=== PATIENT | female | born 1955 | race Caucasian/White ===

== ENCOUNTER 2021-11-16 17:37 | Inpatient (IN) | payer MEDICARE, SELFPAY ==
--- NOTE | ~2021-11-16 | CT_ITS ---
EXAMINATION: CT ABDOMEN AND PELVIS WITH CONTRAST CLINICAL INFORMATION: abd pain COMPARISON: None. TECHNIQUE: Multidetector volumetric imaging was performed from the superior aspect of the liver through the pubic symphysis following administration of 85 mL Omnipaque 300 intravenous contrast. Sagittal and coronal reformatted images were obtained on the technologist workstation.. This CT examination was performed using dose optimization techniques as appropriate, variously including the following: *Automated exposure control *Adjustment of mA and/or kV according to patient size (this includes techniques or standardized protocols for targeted exams where dose is matched to indication/reason for exam; i.e. extremities or head) *Use of iterative reconstruction technique DLP: 486 mGy-cm FINDINGS: LUNG BASES: The visualized lung bases are unremarkable. LIVER, GALLBLADDER, AND BILIARY TREE: The liver is normal in size, shape, and attenuation. Tiny subcentimeter low-attenuation probable cysts in segment 7 of the liver too small to characterize. No suspicious focal hepatic lesion or biliary ductal dilatation is present. The gallbladder is unremarkable with no evidence of radiopaque gallstones, gallbladder wall thickening, or obvious pericholecystic inflammatory changes. PANCREAS: Unremarkable. SPLEEN: Enlarged measuring 15 cm in length ADRENAL GLANDS: Unremarkable. KIDNEYS AND URETERS: The kidneys are normal in size, shape, and attenuation. No hydronephrosis, hydroureter, or calculi seen. No perinephric stranding. BLADDER: Decompressed GASTROINTESTINAL TRACT: Although decompressed, there is marked colonic wall thickening involving the sigmoid colon and descending colon extending to the level of the splenic flexure. This had a more normal appearance on the prior study. With this distribution, infectious or inflammatory causes of colitis would be favored. No obstructive changes seen in the more proximal colon. Visualized small bowel is grossly unremarkable today ABDOMINAL WALL: No significant hernia is appreciated. LYMPHOVASCULAR STRUCTURES: Vascular calcification within the aorta iliac system. Shotty retroperitoneal lymph nodes but no bulky adenopathy PELVIC VISCERA: Unremarkable. OSSEOUS STRUCTURES: Unremarkable. CT/CT abdomen pelvis w con IMPRESSION: New colonic wall thickening and pericolonic inflammatory change extending from the splenic flexure to the sigmoid colon. This long distance of disease is more suggestive of infectious or inflammatory causes of colitis. Small bowel is grossly unremarkable at this time
[2021-11-16 17:54] VITALS: BP 163/94; BP 170/91; PULSE 104; PULSE 83; RESP 18; TEMP 37; O2SAT 95; BMI 26.6
--- NOTE | 2021-11-16 18:12 | ED.GENADULT ---
HPI - General Adult General Chief complaint: GI Bleed Stated complaint: WEAKNESS,NAUSEA,DIARRHEA W/BLOOD Time Seen by Provider: 11/16/21 17:54 Source: patient Limitations: no limitations History of Present Illness HPI narrative: This is a 66-year-old female with a history of fibromyalgia, irritable bowel syndrome, possible lupus (undergoing workup), thyroid nodules (also undergoing workup), complains of vomiting diarrhea that began last night. The patient had similar symptoms a few days ago but did not come to the hospital. She also since this morning has had bright red blood per rectum times several times. She denies any hemorrhoids. She did in 2019 have similar presentation with vomiting diarrhea and rectal bleeding. She states she did have colonoscopy at that time which was negative. She also has had some right upper quadrant tenderness and her physician had wanted her to have evaluation for possible gallstones. She denies any fever but does not state she has had sweats. She denies any cough or shortness of breath. She has felt lightheaded. She notes that she has generally not felt well ever since she had her 2nd COVID vaccination. She denies taking any anticoagulants or aspirin Related Data Allergies Allergy/AdvReac Type Severity Reaction Status Date / Time Penicillins [PENICILLINS] Allergy Intermediate HIVES Unverified 04/03/20 14:55 Review of Systems Review of Systems: Yes all other systems are reviewed and are negative Constitutional: Constitutional: Reports as per HPI, Denies fever(s) and Reports other (Sweats) Eyes: Eyes: Reports as per HPI and Reports no additional eye complaints ENT: Reports system reviewed and no additional complaints, except as documented, Reports as per HPI, Denies nasal congestion, Denies nasal discharge and Denies sore throat Cardiovascular: Cardiovascular: Reports as per HPI, Denies chest pain and Denies dyspnea Respiratory: Respiratory: Reports as per HPI, Denies cough and Denies dyspnea Gastrointestinal: Gastrointestinal: Reports as per HPI, Reports abdominal pain (Crampy), Reports hematochezia, Reports diarrhea, Reports nausea and Reports vomiting Genitourinary: Genitourinary: Reports as per HPI, Denies hematuria, Denies urinary frequency and Denies dysuria Musculoskeletal: Musculoskeletal: Reports no additional musculoskeletal complaints and Denies numbness Integumentary/Breasts: Skin/Breast: Reports as per HPI and Denies rash Neurologic: Reports as per HPI, Denies focal weakness and Denies numbness Psychiatric: Psychiatric: Reports no additional psychiatric complaints and Reports as per HPI Endocrine: Endocrine: Reports no additional endocrine complaints and Reports as per HPI Hematologic/Lymphatic: Hematologic/Lymphatic: Reports no additional hematologic/lymphatic complaints, Reports as per HPI and Reports other (No peripheral edema) [facility] Social History Social History Advance Directives: No Advance Directives Information Provided: No Physical Exam ED Vital Signs: Vital Signs - 24 hr 11/16/21 17:54 11/16/21 19:22 Temperature 98.6 F 98.7 F Pulse Rate 83 83 Respiratory Rate 18 18 Blood Pressure 170/91 H 160/74 H Pulse Oximetry 95 94 BMI result Body Mass Index 26.6 Const General: no acute distress Orientation/consciousness: patient oriented x3 HENMT Head: Yes normal to inspection General nose exam: Normal external nose present Mouth: moist mucous membranes Throat: Yes posterior oropharynx normal, Yes tonsils normal and Yes uvula midline Eyes Eyelids: Yes eyelids normal Conjunctivae: conjunctivae normal Pupils: Equal, round and reactive pupils present Neck Neck: Yes supple Resp Effort & Inspection: normal respiratory effort Auscultation: clear to auscultation bilaterally Cardio Rate: regular rate Rhythm: regular rhythm Heart sounds: S1 normal heart sound present, S2 normal heart sound present, no gallops, no murmurs and no rubs GI Inspection: No distended Palpation (GI): Soft to palpation and nontender Auscultation: normal bowel sounds Skin General skin exam: other (Warm and dry) Neuro General: patient oriented x3 and CN's II-XI intact bilaterally Cranial nerves: Yes Equal, round and reactive pupils present Extrem General: Yes no pedal edema Psych Affect: normal affect Attitude: cooperative Medical Decision Making [facility] Narrative Medical decision making narrative: Patient with vomiting and diarrhea, then bright red blood per rectum times several times today. Patient has had similar symptoms about 2 years ago and did have a colonoscopy around that time, which he states was negative. Patient also has had some long-standing liver quadrant pain was advised by her primary care physician that she might need a workup for biliary disease. Patient's white blood cell count was elevated at around 15. Hemoglobin and hematocrit were normal. CT scan the abdomen pelvis did show evidence of descending colitis, which could be a source of bloody stool. Patient is being admitted for observation, IV antibiotics, IV fluids, may need GI consult. Patient was treated with normal saline another IV, Zofran 4 mg IV, Levaquin 500 mg IV, Flagyl [address] Doran of hospital service was consulted regarding the patient's need for admission Lab Data Result diagrams: 11/16/21 19:28 11/16/21 19:29 Labs: Lab Results 11/16/21 11/16/21 11/16/21 Range/Units 19:28 19:28 19:29 WBC 15.3 H (4.8-10.8) X10*3/uL RBC 5.58 H (4.20-5.50) X10*6/uL Hgb 15.2 (12.0-16.0) g/dl Hct 44.3 (37.0-47.0) % MCV 79.4 L (80.0-98.0) fL MCH 27.2 (27.0-33.0) pg MCHC 34.3 (31.0-35.0) g/dl RDW 13.6 (11.0-16.0) % Plt Count 180 (160-400) X10*3/uL MPV 10.0 (9.4-12.3) fL Immature Gran % (Auto) 0.3 (0.0-0.4) % Neut % (Auto) 87.7 H (45-73) % Lymph % (Auto) 7.8 L (20-40) % Burnett % (Auto) 3.8 (2-11) % Eos % (Auto) 0.1 (0-4) % Baso % (Auto) 0.3 (0-2) % Lymph # (Auto) 1.2 (1.2-4.9) X10*3/uL Burnett # (Auto) 0.6 (0.1-1.2) X10*3/uL Eos # (Auto) 0.0 (0.0-0.4) X10*3/uL Baso # (Auto) 0.0 (0.0-0.2) X10*3/uL Abs Immat Gran (auto) 0.04 H (0.00-0.03) X10*3/uL Absolute Neuts (auto) 13.4 H (2.0-8.3) x10*3/uL Absolute Nucleated RBC 0.000 (0.0-0.012) X10*3/uL Nucleated RBC % (auto) 0.0 (0.0-0.2) /100WBC PT 11.7 (9.9-13.0) SEC INR 1.0 (0.9-1.1) APTT 35.2 (24.1-38.0) SEC Sodium (135-145) mmol/L Potassium (3.3-5.1) mmol/L Chloride (96-108) mmol/L Carbon Dioxide (22-29) mmol/L Anion Gap (12-20) BUN (9-16) mg/dL Creatinine (0.5-1.4) mg/dL Estim Creat Clear Calc Estimated GFR Random Glucose (60-115) mg/dL Calcium (8.4-10.2) mg/dL Total Bilirubin (0.0-1.0) mg/dL AST (5-31) U/L ALT (0-31) U/L Alkaline Phosphatase (39-117) U/L Total Protein (6.5-8.0) g/dL Albumin (3.5-5.0) g/dL Urine Color YELLOW Urine Appearance CLEAR Urine pH 6.0 (5.0-8.0) Ur Specific [place] 1.025 (1.005-1.025) Urine Protein TRACE (NEG-TRACE) MG/DL Urine Glucose (UA) NEG (NEG) MG/DL Urine Ketones NEG (NEG) MG/DL Urine Blood TRACE (NEG) Urine Nitrite NEG (NEG) Ur Leukocyte Esterase NEG (NEG) Urine RBC 1-4 (0) /HPF Urine WBC 0-2 (0-4) /HPF Ur Squamous Epith Cells 1+ /LPF Amorphous Sediment TRACE /LPF Urine Bacteria NONE /LPF Urine Mucus 1+ /LPF 11/16/21 Range/Units 19:29 WBC (4.8-10.8) X10*3/uL RBC (4.20-5.50) X10*6/uL Hgb (12.0-16.0) g/dl Hct (37.0-47.0) % MCV (80.0-98.0) fL MCH (27.0-33.0) pg MCHC (31.0-35.0) g/dl RDW (11.0-16.0) % Plt Count (160-400) X10*3/uL MPV (9.4-12.3) fL Immature Gran % (Auto) (0.0-0.4) % Neut % (Auto) (45-73) % Lymph % (Auto) (20-40) % Burnett % (Auto) (2-11) % Eos % (Auto) (0-4) % Baso % (Auto) (0-2) % Lymph # (Auto) (1.2-4.9) X10*3/uL Burnett # (Auto) (0.1-1.2) X10*3/uL Eos # (Auto) (0.0-0.4) X10*3/uL Baso # (Auto) (0.0-0.2) X10*3/uL Abs Immat Gran (auto) (0.00-0.03) X10*3/uL Absolute Neuts (auto) (2.0-8.3) x10*3/uL Absolute Nucleated RBC (0.0-0.012) X10*3/uL Nucleated RBC % (auto) (0.0-0.2) /100WBC PT (9.9-13.0) SEC INR (0.9-1.1) APTT (24.1-38.0) SEC Sodium 142 (135-145) mmol/L Potassium 4.0 (3.3-5.1) mmol/L Chloride 99 (96-108) mmol/L Carbon Dioxide 30 H (22-29) mmol/L Anion Gap 17 (12-20) BUN 13 (9-16) mg/dL Creatinine 0.74 (0.5-1.4) mg/dL Estim Creat Clear Calc 74.6 Estimated GFR > 60 Random Glucose 122 H (60-115) mg/dL Calcium 9.8 (8.4-10.2) mg/dL Total Bilirubin 0.9 (0.0-1.0) mg/dL AST 14 (5-31) U/L ALT 9 (0-31) U/L Alkaline Phosphatase 45 (39-117) U/L Total Protein 6.9 (6.5-8.0) g/dL Albumin 4.4 (3.5-5.0) g/dL Urine Color Urine Appearance Urine pH (5.0-8.0) Ur Specific [place] (1.005-1.025) Urine Protein (NEG-TRACE) MG/DL Urine Glucose (UA) (NEG) MG/DL Urine Ketones (NEG) MG/DL Urine Blood (NEG) Urine Nitrite (NEG) Ur Leukocyte Esterase (NEG) Urine RBC (0) /HPF Urine WBC (0-4) /HPF Ur Squamous Epith Cells /LPF Amorphous Sediment /LPF Urine Bacteria /LPF Urine Mucus /LPF Imaging Data CT abdomen pelvis with IV contrast: Radiologist's impression: IMPRESSION: New colonic wall thickening and pericolonic inflammatory change extending from the splenic flexure to the sigmoid colon. This long distance of disease is more suggestive of infectious or inflammatory causes of colitis. Small bowel is grossly unremarkable at this time Discharge Plan Discharge Clinical Impression: Colitis, BRBPR (bright red blood per rectum), Vomiting Patient Disposition: Admitted As Inpatient
[2021-11-16 19:22] VITALS: BP 160/74; PULSE 83; RESP 18; TEMP 37.1; O2SAT 94
[2021-11-16 19:36] LABS: MANUAL DIFF FLAG NO
[2021-11-16 19:38] LABS: Appearance Urine CLEAR; Basophils Percent Auto 0.3 % (0-2); Color Urine YELLOW; Eosinophils Percent Auto 0.1 % (0-4); Glucose Urine UA NEG (NEG); Hematocrit 44.3 % (37.0-47.0); Hemoglobin 15.2 g/dl (12.0-16.0); Imm Gran Abs Auto 0.04 X10*3/uL (0.00-0.03); Imm Gran Pct Auto 0.3 % (0.0-0.4); Leukocyte Esterase Urine NEG (NEG); Lymphocytes Absolute Auto 1.2 X10*3/uL (1.2-4.9); Lymphocytes Percent Auto 7.8 % (20-40); Mean Corpuscular HGB Conc 34.3 g/dl (31.0-35.0); Mean Corpuscular Hemoglobin 27.2 pg (27.0-33.0); Mean Corpuscular Volume 79.4 fL (80.0-98.0); Monocytes Absolute Auto 0.6 X10*3/uL (0.1-1.2); Monocytes Percent Auto 3.8 % (2-11); Neutrophils Absolute Auto 13.4 x10*3/uL (2.0-8.3); Neutrophils Percent Auto 87.7 % (45-73); Nitrite Urine NEG (NEG); Platelet Count 180 X10*3/uL (160-400); Red Blood Count 5.58 X10*6/uL (4.20-5.50); Red Cell Distribution Width 13.6 % (11.0-16.0); Specific Gravity - Urine 1.025 (1.005-1.025); UACC Culture Trigger NO; Urine Blood TRACE (NEG); Urine Ketones NEG (NEG); Urine Protein TRACE MG/DL (NEG-TRACE); White Blood Count 15.3 X10*3/uL (4.8-10.8)
[2021-11-16 19:43] LABS: Prothrombin Time 11.7 SEC (9.9-13.0)
[2021-11-16 19:46] LABS: Amorphous Sediment Urine TRACE /LPF; Mucus Urine 1+ /LPF; Squamous Epithelial Cell Urine 1+ /LPF
[2021-11-16 19:46] LABS: Partial Thromboplastin Time 35.2 SEC (24.1-38.0)
[2021-11-16 19:47] LABS: WBC Urine 0-2 /HPF (0-4)
[2021-11-16 19:53] LABS: Alanine Aminotransferase 9 U/L (0-31); Albumin Level 4.4 g/dL (3.5-5.0); Alkaline Phosphatase 45 U/L (39-117); Anion Gap 17 (12-20); Aspartate Amino Transferase 14 U/L (5-31); Bilirubin Total 0.9 mg/dL (0.0-1.0); Blood Urea Nitrogen 13 mg/dL (9-16); Calcium 9.8 mg/dL (8.4-10.2); Carbon Dioxide 30 mmol/L (22-29); Chloride 99 mmol/L (96-108); Creatinine Clr Calc Pharmacy 74.6; Estimated Glomerular Filt Rate > 60; Glucose Random 122 mg/dL (60-115); Sodium 142 mmol/L (135-145); Total Protein 6.9 g/dL (6.5-8.0)
[2021-11-16] MEDS: ondansetron HCL 4 MG/2 ML VIAL IVPUSH (21:13)
[2021-11-16] MEDS: 0.9 % Sodium Chloride 1,000 ML 999 ML IV ×2 (21:14→21:25)
[2021-11-16] MEDS: iohexoL 350 MG/ML 100 ML INFUS..BTL IV (21:24)
--- NOTE | 2021-11-16 22:30 | PM.IMHP ---
History of Present Illness Date of Service: 11/16/21 Chief Complaint: Blood in the stool 66-year-old female with a past medical history of hypertension, hypothyroidism, irritable bowel syndrome presented to the hospital with a chief complaint of diarrhea/blood in the stool. Patient reports that she started to have diarrhea since last night; have few episodes of loose watery stools initially; this morning she started to have bright red blood per rectum-had multiple episodes; denies any lightheadedness or dizziness. Denies any fever chills cough. Reports she has abdominal discomfort; also complains of nausea vomiting. Denies any blood in the vomitus. Denies any chest pain palpitations. Denies any fever chills cough. Denies any urinary symptoms. Review of all other systems is negative except mentioned above ER course: Per ER team patient noted a mild diffuse abdominal tenderness; CT scan showed findings concerning for colitis. Given Levaquin. Admitted to the hospital for further management. PMFSH Pertinent family history: Reviewed Social History Advance Directives: No Advance Directives Information Provided: No Meds Allergies Allergy/AdvReac Type Severity Reaction Status Date / Time Penicillins [PENICILLINS] Allergy Intermediate HIVES Unverified 04/03/20 14:55 Active Medications: Current Medications Acetaminophen (Acetaminophen 325 Mg Tablet) 650 mg PO Q6H PRN PRN Reason: Pain, Mild (Pain Scale 1-3) Levofloxacin (Levaquin) 500 mg in 100 mls @ 100 mls/hr IV ONCE ONE Stop: 11/16/21 23:11 Metronidazole (Flagyl) 500 mg in 100 mls @ 100 mls/hr IV ONCE ONE Stop: 11/16/21 23:11 Levofloxacin (Levaquin) 750 mg in 150 mls @ 100 mls/hr IV Q24H [facility] Metronidazole (Flagyl) 500 mg in 100 mls @ 100 mls/hr IV Q8H [facility] Dextrose/Sodium Chloride (D51/2ns) 1,000 mls @ 50 mls/hr IVCONT .Q20H [facility] Melatonin (Melatonin 3 Mg Tablet) 6 mg PO BEDTIME PRN PRN Reason: Insomnia Pantoprazole Sodium (Pantoprazole Sodium 40 Mg/10 Ml Vial) 40 mg IVPUSH DAILY@0630 [facility] Pharmacy Consult (Consult Rx Perform Med Rec) 1 each MISCELLANE ONCE PRN PRN Reason: Consult order Senna (Sennosides 8.6 Mg Tablet) 17.2 mg PO BEDTIME PRN PRN Reason: Constipation Sodium Chloride (0.9 % Sodium Chloride Flush 3 Ml Syringe) 3 ml IVFLUSH QSHIFT NABIL Physical Exam Vital Signs and Narrative: Vital Signs: Last Vital Signs Temp 98.7 F 11/16/21 19: Pulse 83 11/16/21 19:22 Resp 18 11/16/21 19:22 BP 160/74 H 11/16/21 19: Pulse Ox 94 11/16/21 19:22 BMI result Body Mass Index 26.6 Gen: Appears be in no acute distress HEENT: NCAT, Moist mucosa. Pulmonary: Vesicular breath sounds, fair air entry CVS: Normal S1-S2 Abdomen: BS+, Soft, mildly tender diffusely Extremities: Warm well perfused Neuro: Alert and awake. Results Labs CBC and Chem 7: 11/16/21 19:28 11/16/21 19:29 Labs: Laboratory Results - last 24 hr 11/16/21 11/16/21 11/16/21 19:28 19:28 19:29 MCV 79.4 L MCH 27.2 MCHC 34.3 RDW 13.6 Plt Count 180 MPV 10.0 Immature Gran % (Auto) 0.3 Neut % (Auto) 87.7 H Lymph % (Auto) 7.8 L Carson % (Auto) 3.8 Eos % (Auto) 0.1 Baso % (Auto) 0.3 Lymph # (Auto) 1.2 Carson # (Auto) 0.6 Eos # (Auto) 0.0 Baso # (Auto) 0.0 Abs Immat Gran (auto) 0.04 H Absolute Neuts (auto) 13.4 H Absolute Nucleated RBC 0.000 Nucleated RBC % (auto) 0.0 PT 11.7 INR 1.0 APTT 35.2 Anion Gap Estim Creat Clear Calc Estimated GFR Random Glucose Calcium Total Bilirubin AST ALT Alkaline Phosphatase Total Protein Albumin Urine Color YELLOW Urine Appearance CLEAR Urine pH 6.0 Ur Specific [place] 1.025 Urine Protein TRACE Urine Glucose (UA) NEG Urine Ketones NEG Urine Blood TRACE Urine Nitrite NEG Ur Leukocyte Esterase NEG Urine RBC 1-4 Urine WBC 0-2 Ur Squamous Epith Cells 1+ Amorphous Sediment TRACE Urine Bacteria NONE Urine Mucus 1+ 11/16/21 19:29 MCV MCH MCHC RDW Plt Count MPV Immature Gran % (Auto) Neut % (Auto) Lymph % (Auto) Carson % (Auto) Eos % (Auto) Baso % (Auto) Lymph # (Auto) Carson # (Auto) Eos # (Auto) Baso # (Auto) Abs Immat Gran (auto) Absolute Neuts (auto) Absolute Nucleated RBC Nucleated RBC % (auto) PT INR APTT Anion Gap 17 Estim Creat Clear Calc 74.6 Estimated GFR > 60 Random Glucose 122 H Calcium 9.8 Total Bilirubin 0.9 AST 14 ALT 9 Alkaline Phosphatase 45 Total Protein 6.9 Albumin 4.4 Urine Color Urine Appearance Urine pH Ur Specific Lawrence Urine Protein Urine Glucose (UA) Urine Ketones Urine Blood Urine Nitrite Ur Leukocyte Esterase Urine RBC Urine WBC Ur Squamous Epith Cells Amorphous Sediment Urine Bacteria Urine Mucus Imaging Radiologist's Impressions: Impressions Abdomen/Pelvis CT 11/16/21 21:25 IMPRESSION: New colonic wall thickening and pericolonic inflammatory change extending from the splenic flexure to the sigmoid colon. This long distance of disease is more suggestive of infectious or inflammatory causes of colitis. Small bowel is grossly unremarkable at this time Assessment and Plan (1) Colitis: Status: Acute (2) BRBPR (bright red blood per rectum): Status: Acute Plan 66F with a past medical history of hypertension, hypothyroidism, irritable bowel syndrome presented to the hospital with a chief complaint of diarrhea/blood in the stool. Colitis: Continue Levaquin/Flagyl NPO IV fluids Will obtain stool studies Bright red blood per rectum: H and H currently stable. GI consult. History of hypertension: Hold home lisinopril for now History of hypothyroidism: Continue home levothyroxine DVT prophylaxis: SCD boots Code status: Full code Quality Stroke Does the patient have a stroke diagnosis?: No VTE Prior VTE?: No VTE Risk Level:: Medical - moderate - high VTE Device Contraindication: N/A - Device Ordered VTE Drug Contraindication: Treatment Not Indicated
[2021-11-16] MEDS: levoFLOXacin/D5W 500 MG/100 ML PIGGYBACK 100 MG IV (23:29)
[2021-11-16 23:33] LABS: COVID-19 Test Negative (Negative)
[2021-11-17] MEDS: metroNIDAZOLE/NS 500 MG/100 ML PIGGYBACK 100 MG IV ×3 (00:24→16:28)
[2021-11-17] MEDS: Dextrose 5 % and 0.45 % NaCl 1,000 ML 50 ML IVCONT ×2 (00:25→17:50)
[2021-11-17 05:43] VITALS: BP 148/70; PULSE 70; RESP 16
[2021-11-17] MEDS: Pantoprazole Sodium 40 MG/10 ML VIAL IVPUSH (05:57)
--- NOTE | 2021-11-17 06:25 | PC.NURSE ---
Med Rec completed by this RN. Pt medicated per MAR. Pt taking her own Levothyroxine due to dose discrepancy in the pyxis. Pt resting in bed, lights dim per request, IVF infusing per MAR.
[2021-11-17 07:35] LABS: MANUAL DIFF FLAG NO
[2021-11-17 07:39] LABS: Basophils Percent Auto 0.3 % (0-2); Eosinophils Percent Auto 0.3 % (0-4); Hematocrit 39.7 % (37.0-47.0); Hemoglobin 13.3 g/dl (12.0-16.0); Imm Gran Abs Auto 0.09 X10*3/uL (0.00-0.03); Imm Gran Pct Auto 0.9 % (0.0-0.4); Lymphocytes Absolute Auto 1.6 X10*3/uL (1.2-4.9); Mean Corpuscular HGB Conc 33.5 g/dl (31.0-35.0); Mean Corpuscular Hemoglobin 27.1 pg (27.0-33.0); Mean Corpuscular Volume 80.9 fL (80.0-98.0); Mean Platelet Volume 9.9 fL (9.4-12.3); Monocytes Absolute Auto 0.7 X10*3/uL (0.1-1.2); Neutrophils Absolute Auto 7.7 x10*3/uL (2.0-8.3); Neutrophils Percent Auto 75.5 % (45-73); Platelet Count 138 X10*3/uL (160-400); Red Blood Count 4.91 X10*6/uL (4.20-5.50); Red Cell Distribution Width 13.6 % (11.0-16.0); White Blood Count 10.3 X10*3/uL (4.8-10.8)
--- NOTE | 2021-11-17 08:08 | PHA.MEDREC ---
Pharmacy Consult ? Medication Reconciliation Pharmacy has completed the medication reconciliation. Patient on 12.5mg HCTZ. Thanks Jorge Luis
--- NOTE | 2021-11-17 08:19 | P.CONGS_ITS ---
History of Present Illness Consult details Consult date: 11/17/21 Requesting physician: Steven Doran Narrative: 66-year-old female patient presenting to the emergency department complaints of nausea, vomiting, diarrhea, and now bloody stool of 2 days duration. She reports minimal to no pain in the abdomen but is mainly concerned about the bright red blood. The nausea, vomiting, and diarrhea have been going on for several weeks and was being worked up without a definite diagnosis. She denies any recent travel outside of the country and denies any sick contacts. She lives alone and therefore was concerned about food poisoning. She denies being on any antibiotic treatment prior to the onset of symptoms. She presented to the emergency department last evening and was noted to have elevated WBC and a normal H&H. CT of the abdomen pelvis revealed new colonic wall thickening pericolonic inflammatory changes extending from the splenic flexure to the sigmoid colon. The long distance of disease is more suggestive of an infectious or inflammatory colitis. Small bowel is grossly unremarkable at this time. She reports a prior colonoscopy in 2019 which was reported as normal. Review of Systems Constitutional: Constitutional: Denies chills, Denies fever(s), Denies headache(s) and Reports poor appetite ENT: Denies dizziness and Denies headache(s) Cardiovascular: Cardiovascular: Denies chest pain, Denies rapid heart rate, Denies palpitations and Denies slow heart rate Respiratory: Respiratory: Denies chest congestion, Denies cough, Denies pain on inspiration and Denies wheezing Gastrointestinal: Gastrointestinal: Reports abdominal pain, Denies bloating, Reports hematochezia, Denies change in stool character, Denies constipation, Reports diarrhea, Reports nausea, Reports vomiting and Denies hematemesis Musculoskeletal: Musculoskeletal: Denies back pain, Denies arthralgias, Denies joint swelling and Denies numbness Integumentary/Breasts: Skin/Breast: Denies change in pigmentation, Denies erythema and Denies rash Neurologic: Denies dizziness, Denies headache(s) and Denies numbness Psychiatric: Psychiatric: Denies anxiety and Denies depression Endocrine: Endocrine: Denies palpitations Hematologic/Lymphatic: Hematologic/Lymphatic: Denies easy bleeding, Denies easy bruising and Denies lymphadenopathy Allergic/Immunologic: Allergic/Immunologic: Denies wheezing PMFSH Social History Social History Advance Directives: No Advance Directives Information Provided: No Meds Allergies Allergy/AdvReac Type Severity Reaction Status Date / Time Penicillins [PENICILLINS] Allergy Intermediate HIVES Unverified 04/03/20 14:55 Active Medications: Current Medications Acetaminophen (Acetaminophen 325 Mg Tablet) 650 mg PO Q6H PRN PRN Reason: Pain, Mild (Pain Scale 1-3) Levofloxacin (Levaquin) 750 mg in 150 mls @ 100 mls/hr IV Q24H [facility] Dextrose/Sodium Chloride (D51/2ns) 1,000 mls @ 50 mls/hr IVCONT .Q20H [facility] Last Admin: 11/17/21 00:25 Dose: 50 mls/hr Documented by: Metronidazole (Flagyl) 500 mg in 100 mls @ 100 mls/hr IV Q8H [facility] Levothyroxine Sodium 112 mcg/ (Levothyroxine Sodium 25 mcg) 137 mcg PO DAILY@0600 [facility] Last Admin: 11/17/21 05:57 Dose: Not Given Documented by: Melatonin (Melatonin 3 Mg Tablet) 6 mg PO BEDTIME PRN PRN Reason: Insomnia Pantoprazole Sodium (Pantoprazole Sodium 40 Mg/10 Ml Vial) 40 mg IVPUSH DAILY@0630 [facility] Last Admin: 11/17/21 05:57 Dose: 40 mg Documented by: Pharmacy Consult (Consult Rx Perform Med Rec) 1 each MISCELLANE ONCE PRN PRN Reason: Consult order Senna (Sennosides 8.6 Mg Tablet) 17.2 mg PO BEDTIME PRN PRN Reason: Constipation Sertraline HCl (Sertraline Hcl 100 Mg Tablet) 100 mg PO DAILY [facility] Sodium Chloride (0.9 % Sodium Chloride Flush 3 Ml Syringe) 3 ml IVFLUSH QSHIFT [facility] Last Admin: 11/17/21 01:22 Dose: Not Given Documented by: Home Medications Medication Instructions Recorded Confirmed Last Taken Type hydrochlorothiazide 12.5 mg tablet 12.5 mg PO DAILY 11/17/21 11/17/21 11/15/21 History levothyroxine 137 mcg tablet 137 mcg PO DAILY 11/17/21 11/17/21 11/17/21 06:00 History lisinopril 10 mg tablet 10 mg PO DAILY 11/17/21 11/17/21 11/15/21 16:00 History sertraline 100 mg tablet 100 mg PO DAILY 11/17/21 11/17/21 11/15/21 16:00 History Physical Exam Vital Signs: Vital Signs: Last Vital Signs Temp 98.7 F 11/16/21 19:22 Pulse 70 11/17/21 05:43 Resp 16 11/17/21 05:43 BP 148/70 H 11/17/21 05:43 Pulse Ox 94 11/16/21 19:22 BMI result Body Mass Index 26.6 Const: General: cooperative, comfortable and well developed Nutritional Appearance: well nourished Orientation/consciousness: patient oriented x3 HEENT: Head: Yes normocephalic and Yes atraumatic Ears: hearing grossly normal bilaterally Eyes: Sclerae: sclerae normal EOM: EOMs intact bilaterally Neck: Neck: Yes normal visual inspection Resp: Effort & Inspection: normal respiratory effort, no cough, no respiratory distress and no stridor Cardio: Jugular venous distension: no JVD GI: Inspection: Yes normal to inspection Palpation (GI): Soft to palpation, nontender, no guarding and not rigid Auscultation: normal bowel sounds Rectal Exam - Female: deferred Skin: General skin exam: dry skin Rashes: no rashes Neuro: General: patient oriented x3 and no focal motor deficits Extrem: General: Yes full ROM and Yes no clubbing, cyanosis or edema Psych: Appearance: grossly normal Results Labs Result diagrams: 11/17/21 06:59 11/16/21 19:29 Labs: Abnormal lab results 11/16/21 11/16/21 11/17/21 Range/Units 19:28 19:29 06:59 WBC 15.3 H (4.8-10.8) X10*3/uL RBC 5.58 H (4.20-5.50) X10*6/uL MCV 79.4 L (80.0-98.0) fL Plt Count 138 L (160-400) X10*3/uL Immature Gran % (Auto) 0.9 H (0.0-0.4) % Neut % (Auto) 87.7 H 75.5 H (45-73) % Lymph % (Auto) 7.8 L 16.0 L (20-40) % Abs Immat Gran (auto) 0.04 H 0.09 H (0.00-0.03) X10*3/uL Absolute Neuts (auto) 13.4 H (2.0-8.3) x10*3/uL Carbon Dioxide 30 H (22-29) mmol/L Random Glucose 122 H (60-115) mg/dL Short CBC 11/16/21 11/17/21 Range/Units 19:28 06:59 WBC 15.3 H 10.3 (4.8-10.8) X10*3/uL Hgb 15.2 13.3 (12.0-16.0) g/dl Hct 44.3 39.7 (37.0-47.0) % Plt Count 180 138 L (160-400) X10*3/uL BMP 11/16/21 19:29 Sodium 142 Potassium 4.0 Chloride 99 Carbon Dioxide 30 H BUN 13 Creatinine 0.74 Calcium 9.8 Liver Function 11/16/21 Range/Units 19:29 Total Bilirubin 0.9 (0.0-1.0) mg/dL AST 14 (5-31) U/L ALT 9 (0-31) U/L Alkaline Phosphatase 45 (39-117) U/L Albumin 4.4 (3.5-5.0) g/dL Urine 11/16/21 Range/Units 19:28 Urine Color YELLOW Urine Appearance CLEAR Urine pH 6.0 (5.0-8.0) Ur Specific [place] 1.025 (1.005-1.025) Urine Protein TRACE (NEG-TRACE) MG/DL Urine Glucose (UA) NEG (NEG) MG/DL All other labs normal. Assessment and Plan (1) BRBPR (bright red blood per rectum): Status: Acute (2) Colitis: Status: Acute Plan 66-year-old female patient with complaints of nausea, vomiting, and bloody stool found on CT to have evidence of colitis involving the left colon from the splenic flexure to the sigmoid colon. Findings may indicate infectious colitis verses ischemic colitis. Agree with stool cultures and evaluation for C diff colitis. Malignancy less likely due to previous normal colonoscopy 2 years ago. Surgical intervention anticipated at this time although we will follow closely with you. Procedures Date of Service Date of Service: 11/17/21
[2021-11-17 08:34] LABS: Anion Gap 13 (12-20); Blood Urea Nitrogen 8 mg/dL (9-16); Calcium 8.8 mg/dL (8.4-10.2); Carbon Dioxide 27 mmol/L (22-29); Chloride 105 mmol/L (96-108); Creatinine Clr Calc Pharmacy 84.9; Estimated Glomerular Filt Rate > 60; Glucose Random 122 mg/dL (60-115); Potassium 3.6 mmol/L (3.3-5.1); Sodium 141 mmol/L (135-145)
[2021-11-17 09:23] VITALS: BP 148/78; PULSE 62; RESP 14; TEMP 37.2; O2SAT 92
--- NOTE | 2021-11-17 10:02 | MHC.CM.PN ---
CM met with Patient at bedside and addressed IMM with her, providing her with the original and placing a copy on the chart. Patient lives alone in a house and she required no DME nor services [employer]. Home/no services is the goal for dc and CM has initiated and will follow for dc planning. Patient has received Moderna/Covid vax X2 and her PCP is DR. Maciel Charles.
--- NOTE | 2021-11-17 12:30 | PC.NURSE ---
pt up to restroom and reported that there was a moderate amount of blood in the toilet. she reports abdominal cramping with no change in pattern. denies sob/dizziness/weakness. vss. meds given as documented.
[2021-11-17 16:22] VITALS: BP 103/50; PULSE 63; RESP 18; TEMP 36.7; O2SAT 94
--- NOTE | 2021-11-17 16:32 | P.PNIM_ITS ---
Subjective Subjective Date of Service: 11/17/21 Interval History: No acute issues overnight Review of Systems Denies chest pain Denies shortness of breath Denies nausea vomiting diarrhea Denies abdominal pain Denies fever chills Physical Exam Vital Signs: Vital Signs: Last Vital Signs Temp 98.1 F 11/17/21 16:22 Pulse 63 11/17/21 16:22 Resp 18 11/17/21 16:22 BP 103/50 L 11/17/21 16:22 Pulse Ox 94 11/17/21 16:22 BMI result Body Mass Index 26.6 Const: Other: Awake alert oriented x3 no acute distress Resp: Other: Clear to auscultation bilaterally no rales rhonchi wheezes Cardio: Other: No S4; positive S1/S2; no S3 murmurs or gallops GI: Other: Soft nontender nondistended with normoactive bowel sounds. There is no acute peritoneal signs noted Extrem: Other: No edema bilaterally Objective Data Active Medications Acetaminophen (Acetaminophen 325 Mg Tablet) 650 mg PO Q6H PRN PRN Reason: Pain, Mild (Pain Scale 1-3) Levofloxacin (Levaquin) 750 mg in 150 mls @ 100 mls/hr IV Q24H [facility] Dextrose/Sodium Chloride (D51/2ns) 1,000 mls @ 50 mls/hr IVCONT .Q20H [facility] Last Admin: 11/17/21 00:25 Dose: 50 mls/hr Documented by: RUBY Metronidazole (Flagyl) 500 mg in 100 mls @ 100 mls/hr IV Q8H [facility] Last Admin: 11/17/21 16:28 Dose: 100 mls/hr Documented by: CODY Levothyroxine Sodium 112 mcg/ (Levothyroxine Sodium 25 mcg) 137 mcg PO DAILY@0600 [facility] Last Admin: 11/17/21 05:57 Dose: Not Given Documented by: MOE Non-Admin Reason: Taken at Home Levothyroxine Sodium 112 mcg/ (Levothyroxine Sodium 25 mcg) 137 mcg PO DAILY@0600 [facility] Melatonin (Melatonin 3 Mg Tablet) 6 mg PO BEDTIME PRN PRN Reason: Insomnia Pantoprazole Sodium (Pantoprazole Sodium 40 Mg/10 Ml Vial) 40 mg IVPUSH DAILY@0630 [facility] Last Admin: 11/17/21 05:57 Dose: 40 mg Documented by: MOE Pharmacy Consult (Consult Rx Perform Med Rec) 1 each MISCELLANE ONCE PRN PRN Reason: Consult order Senna (Sennosides 8.6 Mg Tablet) 17.2 mg PO BEDTIME PRN PRN Reason: Constipation Sertraline HCl (Sertraline Hcl 100 Mg Tablet) 100 mg PO DAILY [facility] Last Admin: 11/17/21 09:01 Dose: Not Given Documented by: CODY Non-Admin Reason: NPO Sertraline HCl (Sertraline Hcl 100 Mg Tablet) 100 mg PO DAILY [facility] Sodium Chloride (0.9 % Sodium Chloride Flush 3 Ml Syringe) 3 ml IVFLUSH QSHIFT [facility] Last Admin: 11/17/21 08:45 Dose: Not Given Documented by: CODY Non-Admin Reason: IV Running Labs CBC & Chem 7: 11/17/21 06:59 11/17/21 06:59 Labs: Laboratory Results - last 24 hr 11/16/21 11/16/21 11/16/21 19:28 19:28 19:29 MCV 79.4 L MCH 27.2 MCHC 34.3 RDW 13.6 Plt Count 180 MPV 10.0 Immature Gran % (Auto) 0.3 Neut % (Auto) 87.7 H Lymph % (Auto) 7.8 L [place] % (Auto) 3.8 Eos % (Auto) 0.1 Baso % (Auto) 0.3 Lymph # (Auto) 1.2 [place] # (Auto) 0.6 Eos # (Auto) 0.0 Baso # (Auto) 0.0 Abs Immat Gran (auto) 0.04 H Absolute Neuts (auto) 13.4 H Absolute Nucleated RBC 0.000 Nucleated RBC % (auto) 0.0 PT 11.7 INR 1.0 APTT 35.2 Anion Gap Estim Creat Clear Calc Estimated GFR Random Glucose Calcium Total Bilirubin AST ALT Alkaline Phosphatase Total Protein Albumin Urine Color YELLOW Urine Appearance CLEAR Urine pH 6.0 Ur Specific [place] 1.025 Urine Protein TRACE Urine Glucose (UA) NEG Urine Ketones NEG Urine Blood TRACE Urine Nitrite NEG Ur Leukocyte Esterase NEG Urine RBC 1-4 Urine WBC 0-2 Ur Squamous Epith Cells 1+ Amorphous Sediment TRACE Urine Bacteria NONE Urine Mucus 1+ COVID-19 (DORI) COVID-19 Clin Com 11/16/21 11/16/21 11/17/21 19:29 23:11 06:59 MCV 80.9 MCH 27.1 MCHC 33.5 RDW 13.6 Plt Count 138 L MPV 9.9 Immature Gran % (Auto) 0.9 H Neut % (Auto) 75.5 H Lymph % (Auto) 16.0 L [place] % (Auto) 7.0 Eos % (Auto) 0.3 Baso % (Auto) 0.3 Lymph # (Auto) 1.6 [place] # (Auto) 0.7 Eos # (Auto) 0.0 Baso # (Auto) 0.0 Abs Immat Gran (auto) 0.09 H Absolute Neuts (auto) 7.7 Absolute Nucleated RBC 0.000 Nucleated RBC % (auto) 0.0 PT INR APTT Anion Gap 17 Estim Creat Clear Calc 74.6 Estimated GFR > 60 Random Glucose 122 H Calcium 9.8 Total Bilirubin 0.9 AST 14 ALT 9 Alkaline Phosphatase 45 Total Protein 6.9 Albumin 4.4 Urine Color Urine Appearance Urine pH Ur Specific [place] Urine Protein Urine Glucose (UA) Urine Ketones Urine Blood Urine Nitrite Ur Leukocyte Esterase Urine RBC Urine WBC Ur Squamous Epith Cells Amorphous Sediment Urine Bacteria Urine Mucus COVID-19 (DORI) Negative COVID-19 Clin Com See Note 11/17/21 06:59 MCV MCH MCHC RDW Plt Count MPV Immature Gran % (Auto) Neut % (Auto) Lymph % (Auto) [place] % (Auto) Eos % (Auto) Baso % (Auto) Lymph # (Auto) [place] # (Auto) Eos # (Auto) Baso # (Auto) Abs Immat Gran (auto) Absolute Neuts (auto) Absolute Nucleated RBC Nucleated RBC % (auto) PT INR APTT Anion Gap 13 Estim Creat Clear Calc 84.9 Estimated GFR > 60 Random Glucose 122 H Calcium 8.8 D Total Bilirubin AST ALT Alkaline Phosphatase Total Protein Albumin Urine Color Urine Appearance Urine pH Ur Specific [place] Urine Protein Urine Glucose (UA) Urine Ketones Urine Blood Urine Nitrite Ur Leukocyte Esterase Urine RBC Urine WBC Ur Squamous Epith Cells Amorphous Sediment Urine Bacteria Urine Mucus COVID-19 (DORI) COVID-19 Clin Com Assessment and Plan (1) Colitis: Status: Acute (2) Hypertension: Status: Acute (3) Hypothyroidism: Status: Acute Plan 66F with a past medical history of hypertension, hypothyroidism, irritable bowel syndrome presented to the hospital with a chief complaint of diarrhea/blood in the stool; CT scan consistent with new colonic wall thickening and pericolic inflammatory changes from splenic flexure to sigmoid colon 1.Colitis -continue Levaquin/Flagyl -clearl liquids -IV fluids -serial labs 2.Hypertension -acceptable control of therapies -will resume home therapies when clinically appropriate 3.Hypothyroidism -continue outpatient therapies DVT prophylaxis: SCD boots Code status: Full code Will require ongoing hospitalization for IV antibiotics to treat colitis until diet is able to be advanced Quality Stroke Does the patient have a stroke diagnosis?: No VTE Prior VTE?: No VTE Risk Level:: Medical - moderate - high VTE Device Contraindication: N/A - Device Ordered VTE Drug Contraindication: Treatment Not Indicated
--- NOTE | 2021-11-17 16:37 | PM.EVENT ---
Event Note Date of Service: 11/17/21 Event Note: GI consult dictated colitis await stool studies cont abx follow clinically
[2021-11-17] MEDS: Melatonin 3 MG TABLET 6 MG PO (22:37)
[2021-11-17] MEDS: levoFLOXacin/D5W 750 MG/150 ML PIGGYBACK 100 MG IV (22:37)
[2021-11-18] MEDS: metroNIDAZOLE/NS 500 MG/100 ML PIGGYBACK 100 MG IV ×3 (02:14→17:31)
--- NOTE | 2021-11-18 02:53 | CONS_ITS ---
DATE OF SERVICE: 11/17/2021 REFERRING PHYSICIAN: Mansoor Guy DO REASON FOR CONSULTATION: Rectal bleeding and colitis. HISTORY OF PRESENT ILLNESS: The patient is a pleasant 66-year-old woman who was admitted to the hospital after presenting to the emergency room with complaints of rectal bleeding and diarrhea. This began the night before admission and was associated with crampy abdominal pain as well as initially loose watery stool, which progressed to bright red blood. There was no associated fevers, but she said she felt subjectively sweaty. She had associated nausea or vomiting, and has had intermittent exacerbations of her irritable bowel syndrome symptoms with intermittent diarrhea over the past 2 weeks prior to admission. She denies any recent travel, suspect food ingestions, or antibiotic usage. She has no prior history of colitis and underwent colonoscopy about 2 years ago, which was reportedly normal by her recollection. In the emergency department, she was evaluated with laboratory studies including blood work showing a white count of 15.3 and chemistries that were fairly unremarkable. Imaging was undertaken with CT scanning, which was reviewed. This was interpreted as showing colonic wall thickening and pericolonic inflammatory change from the splenic flexure to the sigmoid colon suggestive of colitis. Small bowel was reportedly normal. PAST MEDICAL HISTORY: 1. Hypertension. 2. Hypothyroidism. 3. Irritable bowel syndrome. 4. Negative colonoscopy as above. 5. ?lupus currently under evaluation. CURRENT MEDICATIONS: Her current medication list is reviewed in the chart. ALLERGIES: PENICILLIN. FAMILY HISTORY: This is reviewed with the patient and is noncontributory. SOCIAL HISTORY: She does smoke. There is no current alcohol or substance abuse. REVIEW OF SYSTEMS: SKIN: No pruritus. HEENT: Negative. CARDIOPULMONARY: No shortness of breath or chest pain. GASTROINTESTINAL: As above. GENITOURINARY: Negative. NEUROPSYCHIATRIC: Negative. PHYSICAL EXAMINATION: GENERAL: Shows a pleasant female, lying comfortably in bed. VITAL SIGNS: Reviewed in the electronic medical record and are stable. SKIN: Anicteric. HEENT: Shows no scleral icterus. NECK: Without lymphadenopathy or thyromegaly. LUNGS: Clear. HEART: Shows a regular rate and rhythm. S1, S2. No murmur. ABDOMEN: Soft. There is some mild diffuse tenderness to palpation. Bowel sounds are present. No organomegaly is noted. EXTREMITIES: Without edema. LABORATORY DATA: Reviewed. Hematocrit has remained stable, and she has not required blood transfusion. IMPRESSION: Colitis. The distribution of this colitis is consistent with ischemic colitis. Other possible causes would include infectious. Inflammatory seems less likely based on her negative colonoscopy in the past. This was discussed with the patient. I have recommended obtaining stool testing as you are doing and treating her empirically with antibiotics. If her symptoms persist and stool testing is nondiagnostic, further evaluation with colonoscopy could be obtained. Thanks for asking me to see her. I will follow her in the hospital with you. MD EVA Gilman/NANDINI / [phone]
[2021-11-18] MEDS: Levothyroxine Sodium 112 MCG, Levothyroxine Sodium 25 MCG 137 MCG PO (05:49)
[2021-11-18] MEDS: Pantoprazole Sodium 40 MG/10 ML VIAL IVPUSH (05:55)
[2021-11-18 09:00] VITALS: BP 140/58; PULSE 66; RESP 16; TEMP 36.6; O2SAT 96
[2021-11-18 09:24] LABS: MANUAL DIFF FLAG NO
[2021-11-18 09:41] LABS: Basophils Percent Auto 0.4 % (0-2); Eosinophils Absolute Auto 0.1 X10*3/uL (0.0-0.4); Eosinophils Percent Auto 1.5 % (0-4); Hematocrit 39.2 % (37.0-47.0); Imm Gran Abs Auto 0.02 X10*3/uL (0.00-0.03); Imm Gran Pct Auto 0.2 % (0.0-0.4); Lymphocytes Absolute Auto 1.6 X10*3/uL (1.2-4.9); Lymphocytes Percent Auto 20.1 % (20-40); Mean Corpuscular HGB Conc 33.2 g/dl (31.0-35.0); Mean Corpuscular Hemoglobin 26.7 pg (27.0-33.0); Mean Corpuscular Volume 80.5 fL (80.0-98.0); Mean Platelet Volume 9.6 fL (9.4-12.3); Monocytes Absolute Auto 0.5 X10*3/uL (0.1-1.2); Monocytes Percent Auto 5.8 % (2-11); Neutrophils Absolute Auto 5.8 x10*3/uL (2.0-8.3); Platelet Count 138 X10*3/uL (160-400); Red Blood Count 4.87 X10*6/uL (4.20-5.50); Red Cell Distribution Width 13.7 % (11.0-16.0); White Blood Count 8.1 X10*3/uL (4.8-10.8)
[2021-11-18] MEDS: Sertraline HCL 100 MG TABLET PO (09:41)
[2021-11-18 09:43] LABS: Alanine Aminotransferase 6 U/L (0-31); Albumin Level 3.9 g/dL (3.5-5.0); Alkaline Phosphatase 39 U/L (39-117); Anion Gap 12 (12-20); Aspartate Amino Transferase 13 U/L (5-31); Bilirubin Total 0.8 mg/dL (0.0-1.0); Blood Urea Nitrogen 9 mg/dL (9-16); Calcium 9.4 mg/dL (8.4-10.2); Carbon Dioxide 31 mmol/L (22-29); Chloride 103 mmol/L (96-108); Creatinine Clr Calc Pharmacy 81.2; Estimated Glomerular Filt Rate > 60; Glucose Fasting 109 mg/dL (60-99); Potassium 3.6 mmol/L (3.3-5.1); Sodium 142 mmol/L (135-145); Total Protein 6.1 g/dL (6.5-8.0)
--- NOTE | 2021-11-18 11:13 | PC.NURSE ---
Pt is A&Ox4, LCA, no complaints of pain at this time, IV in R wrist infiltrated, replaced with 20G in LAC, medicated as per MAR orders, pt states she also takes hydrochlorithizide as well as lisinopril which are not prescribed here at this time. made aware. Call mcgowan within reach. Will continue to monitor.
--- NOTE | 2021-11-18 15:54 | P.PNIM_ITS ---
Subjective Subjective Date of Service: 11/18/21 Interval History: Feels somewhat better this a.m.. Tolerating clear liquid diet Review of Systems Denies chest pain Denies shortness of breath Denies nausea vomiting diarrhea Denies abdomen pain Physical Exam Vital Signs: Vital Signs: Last Vital Signs Temp 97.9 F 11/18/21 09:00 Pulse 66 11/18/21 09:00 Resp 16 11/18/21 09:00 BP 140/58 H 11/18/21 09:00 Pulse Ox 96 11/18/21 09:00 BMI result Body Mass Index 26.6 Const: Other: Awake alert no acute distress Resp: Other: Clear to auscultation bilaterally no rales rhonchi or wheezes Cardio: Other: No S4; positive S1-S2; no S3 murmurs or gallops GI: Other: Soft nontender nondistended normoactive bowel sounds Extrem: Other: No edema bilaterally Objective Data Active Medications Acetaminophen (Acetaminophen 325 Mg Tablet) 650 mg PO Q6H PRN PRN Reason: Pain, Mild (Pain Scale 1-3) Levofloxacin (Levaquin) 750 mg in 150 mls @ 100 mls/hr IV Q24H [facility] Last Infusion: 11/18/21 00:10 Dose: 0 mls/hr Documented by: DWIGHT Dextrose/Sodium Chloride (D51/2ns) 1,000 mls @ 50 mls/hr IVCONT .Q20H [facility] Last Admin: 11/17/21 17:50 Dose: 50 mls/hr Documented by: CODY Metronidazole (Flagyl) 500 mg in 100 mls @ 100 mls/hr IV Q8H [facility] Last Infusion: 11/18/21 13:35 Dose: 0 mls/hr Documented by: BRIDGET Levothyroxine Sodium 112 mcg/ (Levothyroxine Sodium 25 mcg) 137 mcg PO DAILY@0600 [facility] Last Admin: 11/18/21 05:49 Dose: 137 mcg Documented by: DWIGHT Levothyroxine Sodium 112 mcg/ (Levothyroxine Sodium 25 mcg) 137 mcg PO DAILY@0600 [facility] Last Admin: 11/18/21 05:54 Dose: Not Given Documented by: DWIGHT Non-Admin Reason: Duplicate Order Melatonin (Melatonin 3 Mg Tablet) 6 mg PO BEDTIME PRN PRN Reason: Insomnia Last Admin: 11/17/21 22:37 Dose: 6 mg Documented by: DWIGHT Pantoprazole Sodium (Pantoprazole Sodium 40 Mg/10 Ml Vial) 40 mg IVPUSH DAILY@0630 [facility] Last Admin: 11/18/21 05:55 Dose: 40 mg Documented by: DWIGHT Pharmacy Consult (Consult Rx Perform Med Rec) 1 each MISCELLANE ONCE PRN PRN Reason: Consult order Senna (Sennosides 8.6 Mg Tablet) 17.2 mg PO BEDTIME PRN PRN Reason: Constipation Sertraline HCl (Sertraline Hcl 100 Mg Tablet) 100 mg PO DAILY [facility] Last Admin: 11/18/21 09:41 Dose: 100 mg Documented by: BRIDGET Sertraline HCl (Sertraline Hcl 100 Mg Tablet) 100 mg PO DAILY [facility] Last Admin: 11/18/21 09:41 Dose: Not Given Documented by: BRIDGET Non-Admin Reason: Duplicate Order Sodium Chloride (0.9 % Sodium Chloride Flush 3 Ml Syringe) 3 ml IVFLUSH QSHIFT [facility] Last Admin: 11/18/21 15:46 Dose: Not Given Documented by: BRIDGET Non-Admin Reason: IV Running Labs CBC & Chem 7: 11/18/21 09:10 11/18/21 09:10 Labs: Laboratory Results - last 24 hr 11/18/21 11/18/21 09:10 09:10 MCV 80.5 MCH 26.7 L MCHC 33.2 RDW 13.7 Plt Count 138 L MPV 9.6 Immature Gran % (Auto) 0.2 Neut % (Auto) 72.0 Lymph % (Auto) 20.1 [place] % (Auto) 5.8 Eos % (Auto) 1.5 Baso % (Auto) 0.4 Lymph # (Auto) 1.6 [place] # (Auto) 0.5 Eos # (Auto) 0.1 Baso # (Auto) 0.0 Abs Immat Gran (auto) 0.02 Absolute Neuts (auto) 5.8 Absolute Nucleated RBC 0.000 Nucleated RBC % (auto) 0.0 Anion Gap 12 Estim Creat Clear Calc 81.2 Estimated GFR > 60 Fasting Glucose 109 H Calcium 9.4 D Total Bilirubin 0.8 AST 13 ALT 6 Alkaline Phosphatase 39 Total Protein 6.1 L Albumin 3.9 Assessment and Plan (1) Colitis: Status: Acute (2) Hypertension: Status: Acute (3) Hypothyroidism: Status: Acute Plan 66F with a past medical history of hypertension, hypothyroidism, irritable bowel syndrome presented to the hospital with a chief complaint of diarrhea/blood in the stool; CT scan consistent with new colonic wall thickening and pericolic inflammatory changes from splenic flexure to sigmoid colon 1.Colitis -continue Levaquin/Flagyl -clear liquids tolerated well; advanced to full liquids -IV fluids -serial labs 2.Hypertension -acceptable control of therapies -will resume home therapies when clinically appropriate 3.Hypothyroidism -continue outpatient therapies DVT prophylaxis: SCD boots Code status: Full code Will require ongoing hospitalization for IV antibiotics to treat colitis until diet is able to be advanced Quality Stroke Does the patient have a stroke diagnosis?: No VTE Prior VTE?: No VTE Risk Level:: Medical - moderate - high VTE Device Contraindication: N/A - Device Ordered VTE Drug Contraindication: Treatment Not Indicated
[2021-11-18] MEDS: levoFLOXacin/D5W 750 MG/150 ML PIGGYBACK 100 MG IV (21:52)
[2021-11-18] MEDS: LORazepam 2 MG/ML VIAL 0.5 MG IVPUSH (21:53)
[2021-11-18 22:56] VITALS: BP 124/61; PULSE 52; RESP 16; TEMP 37.3; O2SAT 94
[2021-11-18] MEDS: Dextrose 5 % and 0.45 % NaCl 1,000 ML 50 ML IVCONT (23:34)
[2021-11-19] MEDS: 0.9 % Sodium Chloride Flush 3 ML SYRINGE IVFLUSH ×2 (00:40→09:14)
[2021-11-19] MEDS: metroNIDAZOLE/NS 500 MG/100 ML PIGGYBACK 100 MG IV ×2 (00:40→09:14)
[2021-11-19] MEDS: Levothyroxine Sodium 112 MCG, Levothyroxine Sodium 25 MCG 137 MCG PO (06:28)
[2021-11-19] MEDS: Pantoprazole Sodium 40 MG/10 ML VIAL IVPUSH (06:29)
[2021-11-19 06:34] VITALS: BP 164/64; PULSE 64; TEMP 36.9; O2SAT 94
[2021-11-19 07:04] LABS: MANUAL DIFF FLAG NO
[2021-11-19 07:29] LABS: Basophils Percent Auto 0.3 % (0-2); Eosinophils Absolute Auto 0.2 X10*3/uL (0.0-0.4); Eosinophils Percent Auto 2.5 % (0-4); Hematocrit 34.2 % (37.0-47.0); Hemoglobin 11.6 g/dl (12.0-16.0); Imm Gran Abs Auto 0.03 X10*3/uL (0.00-0.03); Imm Gran Pct Auto 0.5 % (0.0-0.4); Lymphocytes Absolute Auto 1.3 X10*3/uL (1.2-4.9); Lymphocytes Percent Auto 19.8 % (20-40); Mean Corpuscular HGB Conc 33.9 g/dl (31.0-35.0); Mean Corpuscular Volume 79.5 fL (80.0-98.0); Monocytes Absolute Auto 0.5 X10*3/uL (0.1-1.2); Neutrophils Absolute Auto 4.5 x10*3/uL (2.0-8.3); Neutrophils Percent Auto 69.9 % (45-73); Platelet Count 127 X10*3/uL (160-400); Red Cell Distribution Width 13.4 % (11.0-16.0); White Blood Count 6.5 X10*3/uL (4.8-10.8)
[2021-11-19 07:39] LABS: Alanine Aminotransferase 7 U/L (0-31); Albumin Level 3.5 g/dL (3.5-5.0); Alkaline Phosphatase 33 U/L (39-117); Anion Gap 9 (12-20); Aspartate Amino Transferase 12 U/L (5-31); Bilirubin Total 0.7 mg/dL (0.0-1.0); Blood Urea Nitrogen 7 mg/dL (9-16); Calcium 8.9 mg/dL (8.4-10.2); Carbon Dioxide 31 mmol/L (22-29); Chloride 107 mmol/L (96-108); Creatinine Clr Calc Pharmacy 81.2; Estimated Glomerular Filt Rate > 60; Glucose Fasting 116 mg/dL (60-99); Potassium 3.9 mmol/L (3.3-5.1); Sodium 143 mmol/L (135-145); Total Protein 5.3 g/dL (6.5-8.0)
[2021-11-19] MEDS: Sertraline HCL 100 MG TABLET PO ×2 (09:14)
--- NOTE | 2021-11-19 11:16 | PC.NURSE ---
Pt resting in hospital bed. Tolerated diet this morning. no complaints of pain. medicated per sep. independent in the unit. VSS. Call mcgowan and belongings within reach.
[2021-11-19 14:08] VITALS: BP 123/76; PULSE 68; RESP 20; O2SAT 93
--- NOTE | 2021-11-19 14:10 | P.DS_ITS ---
DS: Providers Provider Date of Service: 11/19/21 Date of admission: 11/16/21 22:27 Date of discharge: 11/19/21 Primary care physician: ANAI Ngo Consults: 11/16/21 22:24 Consult to Gastroenterology Routine Consulting Provider: Felipe Tate Reason for consultation: BRBPR Consult to General Surgery Routine Consulting Provider: Ashok Alonso Reason for consultation: colitis / blood in stool DS: Diagnosis Discharge Diagnosis (1) Colitis: Status: Acute (2) Hypertension: Status: Acute (3) Hypothyroidism: Status: Acute DS: Summary Hospital Course Hospital Course: 66-year-old female with a past medical history of hypertension, hypothyroidism, irritable bowel syndrome presented to the hospital with a chief complaint of diarrhea/blood in the stool.? CT scan consistent with descending colon diverticulitis. Patient admitted with IV Levaquin and metronidazole. Over the next 48 hours she is maintained on a clear liquid diet and the due for discharge she was advanced to full. On the day of discharge she tolerated a low residue diet and she is medically acceptable for discharge home to complete therapies Time Spent with Patient Time attestation: Total time spent providing and/or coordinating discharge services: Discharge coordination time: Greater than 30 minutes Quality: Safe Use of Opioids Does Pt have an Active Cancer Diagnosis on the Problem List?: No Quality: Stroke Does the patient have a stroke diagnosis?: No Physical Exam Vital Signs: Vital Signs: Last Vital Signs Temp 98.5 F 11/19/21 06:34 Pulse 68 11/19/21 14:08 Resp 20 11/19/21 14:08 BP 123/76 11/19/21 14:08 Pulse Ox 93 11/19/21 14:08 BMI result Body Mass Index 26.6 Const: Other: Awake alert no acute distress Resp: Other: Clear to auscultation bilaterally no rales rhonchi or wheezes Cardio: Other: No S4; positive S1-S2; no S3 murmurs or gallops GI: Other: Soft nontender nondistended normoactive bowel sounds Extrem: Other: No edema bilaterally DS: Data Data Completed and Pending Labs on day of discharge: Laboratory Results - last 24 hr 11/19/21 11/19/21 06:47 06:47 WBC 6.5 RBC 4.30 Hgb 11.6 L Hct 34.2 L MCV 79.5 L MCH 27.0 MCHC 33.9 RDW 13.4 Plt Count 127 L MPV 10.0 Immature Gran % (Auto) 0.5 H Neut % (Auto) 69.9 Lymph % (Auto) 19.8 L [place] % (Auto) 7.0 Eos % (Auto) 2.5 Baso % (Auto) 0.3 Lymph # (Auto) 1.3 [place] # (Auto) 0.5 Eos # (Auto) 0.2 Baso # (Auto) 0.0 Abs Immat Gran (auto) 0.03 Absolute Neuts (auto) 4.5 Absolute Nucleated RBC 0.000 Nucleated RBC % (auto) 0.0 Sodium 143 Potassium 3.9 Chloride 107 Carbon Dioxide 31 H Anion Gap 9 L BUN 7 L Creatinine 0.68 Estim Creat Clear Calc 81.2 Estimated GFR > 60 Fasting Glucose 116 H Calcium 8.9 Total Bilirubin 0.7 AST 12 ALT 7 Alkaline Phosphatase 33 L Total Protein 5.3 L Albumin 3.5 Discharge Plan Discharge Patient Disposition: Home, Self-Care Discharge Diagnosis: Diverticulitis Referrals: Maciel Charles PA [Primary Care Provider] - 1 Week Discharge Medications: New levofloxacin 500 mg tablet 500 mg PO DAILY 5 Days Qty: 5 0RF metronidazole 500 mg tablet 500 mg PO TID Qty: 5 0RF Continued levothyroxine 137 mcg tablet 137 mcg PO DAILY 0RF sertraline 100 mg tablet 100 mg PO DAILY 0RF lisinopril 10 mg tablet 10 mg PO DAILY 0RF hydrochlorothiazide 12.5 mg tablet 12.5 mg PO DAILY 0RF Discharge Orders: Discharge Order (Routine); Ordered 11/19/21 Ordered By: Mansoor Guy Diet: advance to usual diet Activity on Discharge: As tolerated Stand Alone Forms: Patient Portal Discharge page Care Plan Goals: Complete Levaquin and Flagyl as ordered Health Concerns: No alcohol 1 week after Flagyl Plan of Treatment: Follow-up with PCP in 1-2 weeks Assessment: See discharge summary
== END 2021-11-19 14:19 | disposition home or self-care (01) | DRG 392 ==
LOC: HO.ED 18:25 → HO.EDOVER 22:33
PROVIDERS: Admitting Provider Hospitalist; Emergency Provider Emergency Medicine; PCP Physician Assistant Medical; Visit Provider Hospitalist
DX: K52.9 Noninfective gastroenteritis and colitis, unspecified (principal); K62.5 Hemorrhage of anus and rectum; M79.7 Fibromyalgia; M32.9 Systemic lupus erythematosus, unspecified; E03.9 Hypothyroidism, unspecified; I10 Essential (primary) hypertension; Z20.822 Contact with and (suspected) exposure to COVID-19; Z88.0 Allergy status to penicillin; Z79.899 Other long term (current) drug therapy
CPT/HCPCS: 36415; 74177; 80048; 80053; 81001; 85025; 85610; 85730; 87635; 96361; 96365; 96375; 99285; J1956; J2060; J2405; Q9967